=== PATIENT | female | born 1985 | race Caucasian/White ===

== ENCOUNTER 2016-11-18 21:19 | Emergency (ER) | payer OTHER ==
--- NOTE | 2016-11-18 21:59 | ED NURSING NOTES ---
Clinical Report - Nurses [facility] [address] [place] [address] 11/18/2016 21:20 Patient: ESTELA MARTÍNEZ TRIAGE Acuity: LEVEL 3. Chief Complaint: CHEST PAIN. Alert. No acute distress. SEPSIS SCREEN: Sepsis Screen. Negative (no infection suspected/documented). --21:33 Mallorie Butts R.N. 21:25 11/18/16. BP: 115/64. HR: 84. RR: 22. O2 saturation: 100% on room air. Temp: 98.5 F (oral). Pain level now: 7/10. --21:33 Mallorie Butts R.N. Weight: 87 kg stated. Height/Length: 65 inches Per Patient. BMI: 32. --21:29 Mallorie Butts R.N. Medications TiZANidine HCl Oral. --21:26 Mallorie Butts R.N. Meloxicam Oral (Tablet 7.5 mg), 2 x day. --21:27 Mallorie Butts R.N. Medication/allergy information source: the patient. --21:33 Mallorie Butts R.N. Allergies Crabs. Penicillins. --21:27 Mallorie Butts R.N. Sulfa Antibiotics. Zithromax. --21:27 Mallorie Butts R.N. History Arrived by private vehicle. Historian: patient. Accompanied by friend. Primary physician ([facility]). Onset. (3 hours ago). Describes the quality as sharp. Relates location as in the right chest area. Notes pain level as 7/10 on arrival. ( Pt reports a history of a-fib and states this evening she felt like she went into a-fib and then developed chest pain.). No difficulty breathing, nausea or vomiting. PAST MEDICAL HX: Immunizations: up-to-date. Uses an intrauterine device. SOCIAL HX: Current every day light tobacco smoker (cigarette)- less than 1/2 a pack per day. Occasional alcohol use. No drug use. FALL RISK ASSESSMENT: Fall risk assessment completed. No fall risk identified. NUTRITIONAL RISK ASSESSMENT: The nutritional risk assessment revealed no deficiencies. FUNCTIONAL ASSESSMENT: Functional assessment: no impairments noted. LEARNING NEEDS ASSESSMENT: The learning needs assessment revealed no barriers. SKIN INTEGRITY ASSESSMENT: Skin integrity risk assessment completed. No skin integrity risk identified. --:33 Mallorie Butts R.N. PROBLEMS: Near Syncope. Wound Check. Cellulitis. Frequent Ear Infections. Sinusitis. Otitis Media. Atrial Fibrillation. --21: Mallorie Butts R.N. Assessment GENERAL / NEURO / PSYCH: Alert. Oriented X 4. Appears in no acute distress. Patient appears calm and cooperative. RESPIRATORY: Respirations not labored. CVS: Capillary refill less than 2 seconds. GI / : Abdomen soft and nontender. SKIN: Mucous membranes are pink. Skin is warm and dry. --:33 Mallorie Butts R.N. Interventions ID band on patient. To treatment room. --: Mallorie Butts R.N. PHYSICAL ASSESSMENT :11/18/16. Ambulatory to room. GENERAL / NEURO / PSYCH: Alert. Oriented X 4. Appears in no acute distress. HEENT: Mucous membranes are pink. RESPIRATORY: Respirations not labored. CVS: Cardiac rhythm: normal sinus rhythm. Pulses within normal limits. Capillary refill less than 2 seconds. GI / : Abdomen soft and nontender. EXTREMITIES: No lower extremity edema. SKIN: Skin is warm and dry. Normal skin turgor. Skin is non-tender. --:33 Mallorie Butts R.N. NURSING PROGRESS NOTES media monitor, pulse oximeter and NIBP monitor placed on patient; monitor alarms on. Patient gowned. Patient identifiers checked. Call light placed in reach. Side rails up x 1. Bed placed in lowest position. Brakes of bed on. Patient ready for evaluation- chart flagged and ED physician notified. --:34 Mallorie Butts R.N. :11/18/16. BP: 120/81 (regular adult cuff) taken on the right arm. --21:34 Mallorie Butts R.N. DISPOSITION / DISCHARGE Departure time: 22:20 Nov 18 2016. Condition at departure: improved and stable. No learning barriers present. Patient verbalized understanding. Written instructions provided in Sammarinese. The patient was discharged by the physician. She was discharged home and accompanied by as400 developer. She left the Emergency Department ambulatory and via private vehicle. Certified Surgical Tech/First Assistant driving. --22:56 Mallorie Butts R.N. 22:55 11/18/16. BP: 118/79. HR: 83. RR: 12. O2 saturation: 99% on room air. Temp: 98.3 F (oral). Pain level now: 04/22. --22:56 Mallorie Butts R.N. Locked/Released at 11/18/2016 22:56 by Mallorie Butts R.N.
--- NOTE | 2016-11-18 21:59 | ED CLINICAL REPORT ---
Clinical Report - Physicians/Mid Levels [facility] [address] [place] [address] 11/18/2016 21:20 Patient: ESTELA MARTÍNEZ Time Seen: 21:24 Nov 18 2016. Arrived- By private vehicle. Historian- patient. HISTORY OF PRESENT ILLNESS Chief Complaint: CHEST PAIN. It is described as sharp, "pain" and well localized and it is described as located in the right chest area. At its maximum, severity described as moderate. When seen in the E.D., severity described as moderate. Modifying factors- worsened by movement and deep breaths. Relieved by rest. This started just prior to arrival Onset. (3 hours ago). Describes the quality as sharp. Relates location as in the right chest area. Notes pain level as 7/10 on arrival. ( Pt reports a history of a-fib and states this evening she felt like she went into a-fib and then developed chest pain.). No difficulty breathing, nausea or vomiting. Onset during light activity. No nausea, vomiting or diaphoresis. She has had difficulty breathing. Similar symptoms previously: None. Recent medical care: Not recently seen/assessed. REVIEW OF SYSTEMS No fever, cough, pedal edema, calf pain or missed periods. No fainting episodes, headache, sore throat, abdominal pain or black stools. No difficulty with urination, skin rash, enlarged lymph nodes, joint pain or bloody stools. All systems otherwise negative, except as recorded above. PAST HISTORY Near Syncope. Cellulitis. Sinusitis. Otitis Media. Atrial Fibrillation. No history of heart disease, lung disease, GI disease, hypertension or hyperlipidemia. Medications: Meloxicam Oral (Tablet 7.5 mg), 2 x day. TiZANidine HCl Oral. Allergies: Crabs. Penicillins. Sulfa Antibiotics. Zithromax. SOCIAL HISTORY Heavy tobacco smoker (cigarette)- less than 1 pack per day. No alcohol use or drug use. ADDITIONAL NOTES The nursing notes have been reviewed. PHYSICAL EXAM Vital Signs: 11/18/2016 21:25 BP: 115/64. HR: 84. RR: 22. O2 saturation: 100%. Temp: 98.5 F. Pain level now: 7/10. Appearance: Alert. No acute distress. Anxious. Eyes: Pupils equal, round and reactive to light. Eyes normal inspection. ENT: Ears normal. Nose normal. Pharynx normal. Neck: Normal inspection. Neck supple. CVS: Normal heart rate and rhythm. Heart sounds normal. Pulses normal. No cardiac murmur. Respiratory: No respiratory distress. Chest pain reproducible with palpation of the costal cartilage and anterior chest wall, with movement of the trunk and right arm and with deep breathing. Breath sounds normal. Abdomen: Soft and nontender. Bowel sounds normal. Back: Normal external inspection. Skin: Skin warm. Normal skin color. No rash. Extremities: Extremities exhibit normal ROM. No lower extremity edema. Neuro: Oriented X 3. No motor deficit. No sensory deficit. Reflexes normal. LABS, X-RAYS, AND EKG EKG: Normal sinus rhythm. Normal P waves. Normal BOB. Normal QRS complex. Normal axis. Normal ST and T waves. Prior EKG unavailable. The study has been interpreted contemporaneously. The study has been independently viewed by me. The EKG appears to be a good tracing. PROGRESS AND PROCEDURES Patient/family counseled. Disposition: Discharged. Condition: stable. CLINICAL IMPRESSION Chest wall pain .12 lead EKG performed. INSTRUCTIONS Apply moist heat for 15-20 minutes three times a day for five days until better. No strenuous activity. Rest. Avoid stimulants (such as cigarettes, coffee, cold medicines, sinus medicines, street drugs). Warnings: Further evaluation is necessary. GENERAL WARNINGS: Return or contact your physician immediately if your condition worsens or changes unexpectedly, if not improving as expected, or if other problems arise. Your Current Medications: CONTINUE TAKING THE FOLLOWING MEDICATIONS: Meloxicam Oral : Tablet 7.5 mg, 2 x day. TiZANidine HCl Oral. Follow-up: Follow up with your doctor in one week. Call for an appointment. Understanding of the discharge instructions verbalized by patient and family. (Electronically signed by Anand Colin MD 11/21/2016 15:17)
--- NOTE | 2016-11-18 21:59 | ED NURSING NOTES ---
Clinical Report - Nurses [facility] [address] [place] [address] 11/18/2016 21:20 Patient: ESTELA MARTÍNEZ TRIAGE Acuity: LEVEL 3. Chief Complaint: CHEST PAIN. Alert. No acute distress. SEPSIS SCREEN: Sepsis Screen. Negative (no infection suspected/documented). --21:33 Mallorie Butts R.N. 21:25 11/18/16. BP: 115/64. HR: 84. RR: 22. O2 saturation: 100% on room air. Temp: 98.5 F (oral). Pain level now: 7/10. --21:33 Mallorie Butts R.N. Weight: 87 kg stated. Height/Length: 65 inches Per Patient. BMI: 32. --21:29 Mallorie Butts R.N. Medications TiZANidine HCl Oral. --21:26 Mallorie Butts R.N. Meloxicam Oral (Tablet 7.5 mg), 2 x day. --21:27 Mallorie Butts R.N. Medication/allergy information source: the patient. --21:33 Mallorie Butts R.N. Allergies Crabs. Penicillins. --21:27 Mallorie Butts R.N. Sulfa Antibiotics. Zithromax. --21:27 Mallorie Butts R.N. History Arrived by private vehicle. Historian: patient. Accompanied by friend. Primary physician ([facility]). Onset. (3 hours ago). Describes the quality as sharp. Relates location as in the right chest area. Notes pain level as 7/10 on arrival. ( Pt reports a history of a-fib and states this evening she felt like she went into a-fib and then developed chest pain.). No difficulty breathing, nausea or vomiting. PAST MEDICAL HX: Immunizations: up-to-date. Uses an intrauterine device. SOCIAL HX: Current every day light tobacco smoker (cigarette)- less than 1/2 a pack per day. Occasional alcohol use. No drug use. FALL RISK ASSESSMENT: Fall risk assessment completed. No fall risk identified. NUTRITIONAL RISK ASSESSMENT: The nutritional risk assessment revealed no deficiencies. FUNCTIONAL ASSESSMENT: Functional assessment: no impairments noted. LEARNING NEEDS ASSESSMENT: The learning needs assessment revealed no barriers. SKIN INTEGRITY ASSESSMENT: Skin integrity risk assessment completed. No skin integrity risk identified. --:33 Mallorie Butts R.N. PROBLEMS: Near Syncope. Wound Check. Cellulitis. Frequent Ear Infections. Sinusitis. Otitis Media. Atrial Fibrillation. --21: Mallorie Butts R.N. Assessment GENERAL / NEURO / PSYCH: Alert. Oriented X 4. Appears in no acute distress. Patient appears calm and cooperative. RESPIRATORY: Respirations not labored. CVS: Capillary refill less than 2 seconds. GI / : Abdomen soft and nontender. SKIN: Mucous membranes are pink. Skin is warm and dry. --:33 Mallorie Butts R.N. Interventions ID band on patient. To treatment room. --: Mallorie Butts R.N. PHYSICAL ASSESSMENT :11/18/16. Ambulatory to room. GENERAL / NEURO / PSYCH: Alert. Oriented X 4. Appears in no acute distress. HEENT: Mucous membranes are pink. RESPIRATORY: Respirations not labored. CVS: Cardiac rhythm: normal sinus rhythm. Pulses within normal limits. Capillary refill less than 2 seconds. GI / : Abdomen soft and nontender. EXTREMITIES: No lower extremity edema. SKIN: Skin is warm and dry. Normal skin turgor. Skin is non-tender. --:33 Mallorie Butts R.N. NURSING PROGRESS NOTES fish salter, pulse oximeter and NIBP monitor placed on patient; monitor alarms on. Patient gowned. Patient identifiers checked. Call light placed in reach. Side rails up x 1. Bed placed in lowest position. Brakes of bed on. Patient ready for evaluation- chart flagged and ED physician notified. --:34 Mallorie Butts R.N. :11/18/16. BP: 120/81 (regular adult cuff) taken on the right arm. --21:34 Mallorie Butts R.N. DISPOSITION / DISCHARGE Departure time: 22:20 Nov 18 2016. Condition at departure: improved and stable. No learning barriers present. Patient verbalized understanding. Written instructions provided in Burkinan. The patient was discharged by the physician. She was discharged home and accompanied by carbon brusher assembler. She left the Emergency Department ambulatory and via private vehicle. Potato Inspector driving. --22:56 Mallorie Butts R.N. 22:55 11/18/16. BP: 118/79. HR: 83. RR: 12. O2 saturation: 99% on room air. Temp: 98.3 F (oral). Pain level now: 04/22. --22:56 Mallorie Butts R.N. Locked/Released at 11/18/2016 22:56 by Mallorie Butts R.N.
--- NOTE | 2016-11-21 15:18 | ED MAR SUMMARY ---
..... Medication Administration Record [facility] [address] [place], [place] [id number] Patient: ESTELA MARTÍNEZ Visit ID: [id number] 31y, F Weight: 87.0 kg Height/Length: 65 in BMI: 32 ALLERGIES: Crabs, Penicillins, Sulfa Antibiotics, Zithromax
--- NOTE | 2016-11-21 15:18 | ED MAR SUMMARY ---
..... Medication Administration Record [facility] [address], [place] [id number] Patient: ESTELA MARTÍNEZ Visit ID: [id number] 31y, F Weight: 87.0 kg Height/Length: 65 in BMI: 32 ALLERGIES: Crabs, Penicillins, Sulfa Antibiotics, Zithromax
--- NOTE | 2016-11-21 15:18 | ED MED RECONCILIATION SUMMARY ---
Patient: ESTELA MARTÍNEZ Medication Reconciliation Report [facility] VisitID: [id number] [address] [place] [address] 31y, F Registration Date/Time: 11/18/2016 Weight: 87.0 kg Height/Length: 65 in. BMI: 32.0 ALLERGIES: Crabs, Penicillins, Sulfa Antibiotics, Zithromax The patient's Home Medications are listed below: CONTINUE TAKING THE FOLLOWING MEDICATIONS: Meloxicam Oral (7.5 mg), 2 x day TiZANidine HCl Oral The source(s) of the original Home Medication information: patient The following Medications were given to the patient in the Emergency Department: None. The following Medications were prescribed to the patient: None.
--- NOTE | 2016-11-21 15:18 | ED MED RECONCILIATION SUMMARY ---
Patient: ESTELA MARTÍNEZ Medication Reconciliation Report [facility] VisitID: [id number] [address] [place] [address] 31y, F Registration Date/Time: 11/18/2016 Weight: 87.0 kg Height/Length: 65 in. BMI: 32.0 ALLERGIES: Crabs, Penicillins, Sulfa Antibiotics, Zithromax The patient's Home Medications are listed below: CONTINUE TAKING THE FOLLOWING MEDICATIONS: Meloxicam Oral (7.5 mg), 2 x day TiZANidine HCl Oral The source(s) of the original Home Medication information: patient The following Medications were given to the patient in the Emergency Department: None. The following Medications were prescribed to the patient: None.
--- NOTE | 2016-11-21 15:18 | ED DISCHARGE INSTRUCTIONS ---
Patient: ESTELA MARTÍNEZ General Instructions [facility] VisitID: [id number] [place] [address] 31y, F Registration Date/Time: 11/18/2016 Chest wall pain .12 lead EKG performed. INSTRUCTIONS Apply moist heat for 15-20 minutes three times a day for five days until better. No strenuous activity. Rest. Avoid stimulants (such as cigarettes, coffee, cold medicines, sinus medicines, street drugs). Warnings: Further evaluation is necessary. GENERAL WARNINGS: Return or contact your physician immediately if your condition worsens or changes unexpectedly, if not improving as expected, or if other problems arise. Your Current Medications: CONTINUE TAKING THE FOLLOWING MEDICATIONS: Meloxicam Oral : Tablet 7.5 mg, 2 x day. TiZANidine HCl Oral. Follow-up: Follow up with your doctor in one week. Call for an appointment. Understanding of the discharge instructions verbalized by patient and family. ADDITIONAL INFORMATION Chest Wall Pain: Costochondritis The chest pain that you have had today is caused by Costochondritis. This condition is due to an inflammation of the cartilage joining the ribs to the breastbone. It is not caused by heart or lung problems. Although the exact cause for costochondritis is not known, it often occurs during times of emotional stress. It can be painful, but it is not dangerous. It usually disappears within one to two weeks, but may recur. Rarely, a more serious condition may cause symptoms similar to costochondritis; therefore, watch for the warning signs listed below. Home Care: If you feel that emotional stress is a cause of your condition, try to identify sources of that stress. It may not be obvious! Learn ways to deal with the stress in your life such as regular exercise, muscle relaxation, meditation, or simply taking time out for yourself. For more information about this, consult your doctor or go to a local bookstore and review books and tapes available on the subject of stress reduction. You may use acetaminophen (Tylenol) or ibuprofen (Motrin, Advil) to control pain, unless another pain medicine was prescribed. [ NOTE: If you have liver disease or ever had a stomach ulcer, talk with your doctor before using these medicines.] The use of heat (hot wet compress or heating pad) with or without local analgesic creams (Deep Heat Rub, Trey Villa) will be helpful to reduce pain. Follow Up with your doctor as directed or sooner if you do not start to improve within the next two days. Get Prompt Medical Attention if any of the following occur: A change in the type of pain: if it feels different, becomes more severe, lasts longer, or spreads into your shoulder, arm, neck, jaw or back Shortness of breath or increased pain with breathing Weakness, dizziness, or fainting Cough with dark colored sputum (phlegm) or blood Abdominal pain Dark red or black stools Fever of 100.4F (38C) or higher, or as directed by your healthcare provider You have been given the following additional information: Chest Wall Pain, Costochondritis No strenuous activity. Rest. (Electronically signed by Anand Colin MD 11/21/2016 15:17)
== END 2016-11-18 22:20 | disposition home or self-care (01) ==
LOC: ED SRH 21:19
DX: R07.89 Other chest pain (principal); I48.91 Unspecified atrial fibrillation; Z79.1 Long term (current) use of non-steroidal anti-inflammatories (NSAID); Z79.899 Other long term (current) drug therapy; Z88.0 Allergy status to penicillin; Z88.2 Allergy status to sulfonamides; Z88.1 Allergy status to other antibiotic agents; F17.210 Nicotine dependence, cigarettes, uncomplicated

== ENCOUNTER 2016-11-19 13:06 | Outpatient (CLI) | payer OTHER ==
--- NOTE | 2016-11-19 14:34 | DIAGNOSTIC IMAGING REPORT ---
PROCEDURE: XR SHOULDER 2 OR MORE VW-RIGHT INDICATION: PAIN IN RIGHT AND LEFT SHOULDERS TECHNIQUE: Three views. COMPARISON: None. FINDINGS: Osseous structures, joint spaces and soft tissues are normal. IMPRESSION: 1. Normal right shoulder.
--- NOTE | 2016-11-19 14:35 | DIAGNOSTIC IMAGING REPORT ---
PROCEDURE: XR SHOULDER 2 OR MORE VW-LEFT INDICATION: PAIN IN RIGHT AND LEFT SHOULDERS, initial encounter TECHNIQUE: Three views. COMPARISON: None. FINDINGS: Osseous structures, joint spaces and soft tissues are normal. IMPRESSION: 1. Normal left shoulder.
== END 2016-11-19 23:00 ==
LOC: XR SRH 13:06
DX: M25.512 Pain in left shoulder (principal); M25.511 Pain in right shoulder

== ENCOUNTER 2017-04-09 16:19 | Outpatient (CLI) | payer OTHER ==
--- NOTE | 2017-04-09 17:59 | DIAGNOSTIC IMAGING REPORT ---
PROCEDURE: US COMPLETE PELVIC W/TRANSVAG INDICATION: Pelvic pain. Check IUD position. TECHNIQUE: Transabdominal and endovaginal calixto scale and color Doppler sonographic images of the female pelvis were obtained. COMPARISON: None. FINDINGS: TRANSABDOMINAL SCANS: Uterus is of normal size (5.8 x 3.9 x 5.4 cm) TRANSVAGINAL SCANS: There is an IUD in satisfactory position within the endometrial canal. Endometrial thickness is normal (9 mm). Ovaries are normal (right 3.7 cm, left 3.4 cm). IMPRESSION: 1. There is an IUD in satisfactory position within the endometrial canal. 2. Otherwise negative pelvic ultrasound.
== END 2017-04-09 23:00 | disposition home or self-care (01) ==
LOC: US SRH 16:19
DX: R10.2 Pelvic and perineal pain (principal); Z97.5 Presence of (intrauterine) contraceptive device